=== PATIENT | male | born 1995 | race African-American/Black ===

== ENCOUNTER 2021-10-31 17:24 | Emergency (ER) | payer MEDICAID, SELFPAY ==
[2021-10-31 17:56] VITALS: BP 151/80; PULSE 88; RESP 17; TEMP 36.5; O2SAT 97; BMI 19.5
--- NOTE | 2021-10-31 19:27 | ED_ITS ---
HPI - Nausea/Vomiting/Diarrhea General Chief complaint: Nausea/Vomiting/Diarrhea Stated complaint: weakness/vomiting/abd pain Time Seen by Provider: 10/31/21 19:22 Source: patient Mode of arrival: ambulatory Limitations: no limitations History of Present Illness HPI Narrative: 26-year-old male states he recently drove here from [place] went to a restaurant with his girlfriend who drove up from [place] with him she lives here he is coming here to visit he states after he ate the food he has had nausea vomiting and diarrhea. Patient starting feel weak he denies chest pain cough or shortness of breath. Patient states that her been hospitalized for nausea vomiting in the past. MD elicited complaint: nausea, vomiting and diarrhea Related Data Previous Rx's Medication Instructions Recorded famotidine 20 mg tablet (Pepcid) 20 mg PO BID PRN #60 tab 10/31/21 ondansetron 4 mg disintegrating 4 mg PO Q6H #14 tab 10/31/21 tablet Allergies Allergy/AdvReac Type Severity Reaction Status Date / Time No Known Allergies Allergy Verified 10/31/21 19:26 Review of Systems Review of Systems: Review of systems: General: Patient denies any fever chills recent illness or falls Musculoskeletal: Denies back pain or body aches or other injuries HEENT: denies headache, runny nose, ear pain Respiratory: denies shortness of breath, cough Cardiovascular: no chest pain or palpitations : denies dysuria, frequency Abdomen: nausea vomiting denies abdominal pain Extremities: no swelling, no pain Skin: no diaphoresis Yes all other systems are reviewed and are negative PMFSH Social History Social History Alcohol intake: unknown Patient Tobacco Use Status: Tobacco use Unknown Use of substances other than those prescribed or required for medical reasons: Unknown Advance Directives: No Physical Exam Vital Signs: Vital Signs: Last Vital Signs Temp 97.7 F 10/31/21 17:56 Pulse 88 10/31/21 17:56 Resp 17 10/31/21 17:56 BP 151/80 H 10/31/21 17:56 Pulse Ox 97 10/31/21 17:56 BMI result Body Mass Index 19.5 General: Well-appearing well-nourished in no signs of distress HEENT: Normocephalic atraumatic Neck: No signs of JVD, no masses no tenderness or lymphadenopathy Cardiovascular: Regular rate and rhythm Respiratory: Clear to auscultation bilaterally Abdomen: Soft nontender no masses rectal exam performed guiac negative 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 Extremities: Normal pedal pulses no signs of edema Skin: Dry warm no rashes Back: No tenderness full ROM MDM - Nausea/Vomiting/Diarrhea MDM Narrative Medical decision making narrative: Likely viral or food induced enteritis I will give the patient Zofran fluids Pepcid I will check labs including LFTs and lipase. 2009 Labs are all normal. Patient sleeping in the room I will discharge home. Differential Diagnosis Differential diagnosis: Likely traveler's diarrhea, food poisoning and gastroenteritis Lab Data Result diagrams: 10/31/21 19:38 10/31/21 19:38 Labs: Lab Results 10/31/21 10/31/21 10/31/21 Range/Units 19:38 19:38 19:38 WBC 11.1 H (4.8-10.8) X10*3/uL RBC 5.98 H (4.60-5.80) X10*6/uL Hgb 18.5 H (14.0-18.0) g/dl Hct 54.5 H (42.0-52.0) % MCV 91.1 (80.0-98.0) fL MCH 30.9 (27.0-33.0) pg MCHC 33.9 (31.0-36.0) g/dl RDW 12.8 (11.0-16.0) % Plt Count 294 (160-400) X10*3/uL MPV 10.2 (9.4-12.4) fL Immature Gran % (Auto) 0.4 (0.0-0.4) % Neut % (Auto) 85.5 H (45-73) % Lymph % (Auto) 5.4 L (20-40) % [place] % (Auto) 8.1 (2-11) % Eos % (Auto) 0.3 (0-4) % Baso % (Auto) 0.3 (0-2) % Lymph # (Auto) 0.6 L (1.2-4.9) X10*3/uL [place] # (Auto) 0.9 (0.1-1.2) X10*3/uL Eos # (Auto) 0.0 (0.0-0.4) X10*3/uL Baso # (Auto) 0.0 (0.0-0.2) X10*3/uL Abs Immat Gran (auto) 0.04 H (0.00-0.03) X10*3/uL Absolute Neuts (auto) 9.5 H (2.0-8.3) x10*3/uL Absolute Nucleated RBC 0.000 (0.0-0.012) X10*3/uL Nucleated RBC % (auto) 0.0 (0.0-0.2) /100WBC Sodium 137 (135-145) mmol/L Potassium 4.8 (3.3-5.1) mmol/L Chloride 102 (96-108) mmol/L Carbon Dioxide 23 (22-29) mmol/L Anion Gap 17 (12-20) BUN 15 (9-16) mg/dL Creatinine 0.97 (0.5-1.4) mg/dL Estim Creat Clear Calc 108.7 Estimated GFR > 60 Random Glucose 101 (60-115) mg/dL Calcium 10.0 (8.4-10.2) mg/dL Total Bilirubin 1.2 H (0.0-1.0) mg/dL Direct Bilirubin 0.3 (0.0-0.5) mg/dL AST 31 (5-37) U/L ALT 28 (0-40) U/L Alkaline Phosphatase 149 H (39-117) U/L Total Protein 8.5 H (6.5-8.0) g/dL Albumin 5.0 (3.5-5.0) g/dL Lipase 6 L (8-78) U/L COVID-19 ([facility]) Negative (Negative) COVID-19 Clin Com See Note Discharge Plan Discharge Clinical Impression: Dehydration, Vomiting, Diarrhea Patient Disposition: Home, Self-Care Instructions: Dehydration (ED), Gastroenteritis (ED), Acute Diarrhea (ED) Additional Instructions: Please take zofran as needed for vomiting. Your labs otherwise look normal. Prescriptions: New famotidine [Pepcid] 20 mg tablet 20 mg PO BID PRN (Reason: dyspepsia) Qty: 60 0RF ondansetron 4 mg tablet,disintegrating 4 mg PO Q6H Qty: 14 0RF
[2021-10-31] MEDS: Famotidine/PF 20 MG/2 ML VIAL IVPUSH (19:35)
[2021-10-31] MEDS: 0.9 % Sodium Chloride 1,000 ML 999 ML IV (19:35)
[2021-10-31] MEDS: ondansetron HCL 4 MG/2 ML VIAL IVPUSH (19:35)
[2021-10-31 19:42] LABS: MANUAL DIFF FLAG NO
[2021-10-31 19:43] LABS: Basophils Percent Auto 0.3 % (0-2); Eosinophils Percent Auto 0.3 % (0-4); Hematocrit 54.5 % (42.0-52.0); Hemoglobin 18.5 g/dl (14.0-18.0); Imm Gran Abs Auto 0.04 X10*3/uL (0.00-0.03); Imm Gran Pct Auto 0.4 % (0.0-0.4); Lymphocytes Absolute Auto 0.6 X10*3/uL (1.2-4.9); Lymphocytes Percent Auto 5.4 % (20-40); Mean Corpuscular HGB Conc 33.9 g/dl (31.0-36.0); Mean Corpuscular Hemoglobin 30.9 pg (27.0-33.0); Mean Corpuscular Volume 91.1 fL (80.0-98.0); Mean Platelet Volume 10.2 fL (9.4-12.4); Monocytes Absolute Auto 0.9 X10*3/uL (0.1-1.2); Monocytes Percent Auto 8.1 % (2-11); Neutrophils Absolute Auto 9.5 x10*3/uL (2.0-8.3); Neutrophils Percent Auto 85.5 % (45-73); Platelet Count 294 X10*3/uL (160-400); Red Blood Count 5.98 X10*6/uL (4.60-5.80); Red Cell Distribution Width 12.8 % (11.0-16.0); White Blood Count 11.1 X10*3/uL (4.8-10.8)
[2021-10-31 19:59] LABS: Alanine Aminotransferase 28 U/L (0-40); Alkaline Phosphatase 149 U/L (39-117); Anion Gap 17 (12-20); Aspartate Amino Transferase 31 U/L (5-37); Bilirubin Direct 0.3 mg/dL (0.0-0.5); Bilirubin Total 1.2 mg/dL (0.0-1.0); Blood Urea Nitrogen 15 mg/dL (9-16); COVID-19 Test Negative (Negative); Carbon Dioxide 23 mmol/L (22-29); Chloride 102 mmol/L (96-108); Creatinine Clr Calc Pharmacy 108.7; Estimated Glomerular Filt Rate > 60; Glucose Random 101 mg/dL (60-115); Lipase 6 U/L (8-78); Potassium 4.8 mmol/L (3.3-5.1); Sodium 137 mmol/L (135-145); Total Protein 8.5 g/dL (6.5-8.0)
== END 2021-10-31 21:30 | disposition home or self-care (01) ==
PROVIDERS: Emergency Provider Student in an Organized Health Care Education/Training Program
DX: E86.0 Dehydration (principal); R11.2 Nausea with vomiting, unspecified; R19.7 Diarrhea, unspecified; Z20.822 Contact with and (suspected) exposure to COVID-19; Z79.899 Other long term (current) drug therapy
CPT/HCPCS: 80048; 80076; 83690; 85025; 87635; 96361; 96374; 96375; 99284; J2405

== ENCOUNTER 2022-03-13 22:13 | Emergency (ER) | payer MEDICAID, SELFPAY ==
--- NOTE | ~2022-03-13 | XR_ITS ---
EXAMINATION: XR CHEST CLINICAL INFORMATION: Pain, syncope COMPARISON: None TECHNIQUE: 2 views of the chest were obtained. FINDINGS: The lungs are clear with no focal consolidation. No evidence of pneumothorax, pulmonary edema, or pleural effusions. The cardiomediastinal silhouette is unremarkable. No acute osseous findings. XR/XR chest 2V IMPRESSION: No acute cardiopulmonary findings.
--- NOTE | ~2022-03-13 | XR_ITS ---
EXAMINATION: XR BILATERAL HIPS WITH AP PELVIS CLINICAL INFORMATION: Syncope, pain COMPARISON: None TECHNIQUE: AP view of the pelvis and single views of each hip were obtained. FINDINGS: Alignment across the hips is anatomic, and joint spaces appear maintained. No acute fracture is seen. Sacroiliac joints and pubic symphysis are intact. XR/XR hips MILANA min 3V IMPRESSION: No acute findings identified.
[2022-03-13 22:15] VITALS: BP 130/94; PULSE 85; RESP 18; TEMP 37.1; O2SAT 95; BMI 29.1
--- NOTE | 2022-03-13 22:19 | ECG_ITS ---
Test Reason : SYNCOPE Blood Pressure : / mmHG Vent. Rate : 084 BPM Atrial Rate : 084 BPM P-R Int : 196 ms QRS Dur : 094 ms QT Int : 322 ms P-R-T Axes : 052 048 049 degrees QTc Int : 380 ms Normal sinus rhythm Normal ECG No previous ECGs available Referred By: Generic ED Physician Electronically Signed By:Deon Aly
[2022-03-13 22:35] LABS: MANUAL DIFF FLAG NO
[2022-03-13 22:37] LABS: Basophils Absolute Auto 0.1 X10*3/uL (0.0-0.2); Basophils Percent Auto 0.7 % (0-2); Eosinophils Absolute Auto 0.2 X10*3/uL (0.0-0.4); Eosinophils Percent Auto 1.8 % (0-4); Hematocrit 49.2 % (42.0-52.0); Hemoglobin 16.8 g/dl (14.0-18.0); Imm Gran Abs Auto 0.05 X10*3/uL (0.00-0.03); Imm Gran Pct Auto 0.4 % (0.0-0.4); Lymphocytes Absolute Auto 2.4 X10*3/uL (1.2-4.9); Lymphocytes Percent Auto 18.4 % (20-40); Mean Corpuscular HGB Conc 34.1 g/dl (31.0-36.0); Mean Corpuscular Hemoglobin 30.6 pg (27.0-33.0); Mean Corpuscular Volume 89.6 fL (80.0-98.0); Mean Platelet Volume 9.8 fL (9.4-12.4); Monocytes Percent Auto 7.3 % (2-11); Neutrophils Absolute Auto 9.2 x10*3/uL (2.0-8.3); Neutrophils Percent Auto 71.4 % (45-73); Platelet Count 313 X10*3/uL (160-400); Red Blood Count 5.49 X10*6/uL (4.60-5.80); Red Cell Distribution Width 12.4 % (11.0-16.0); White Blood Count 12.9 X10*3/uL (4.8-10.8)
[2022-03-13 22:53] LABS: Ethanol < 10 mg/dL
[2022-03-13 22:58] LABS: Alanine Aminotransferase 20 U/L (0-40); Alkaline Phosphatase 135 U/L (39-117); Aspartate Amino Transferase 24 U/L (5-37); Bilirubin Direct 0.2 mg/dL (0.0-0.5); Bilirubin Total 0.5 mg/dL (0.0-1.0); Total Protein 8.2 g/dL (6.5-8.0)
[2022-03-13 22:59] LABS: Troponin-I High Sensitivity < 3.5 ng/L (<3.5-35.0)
[2022-03-13 23:09] LABS: Anion Gap 16 (12-20); Blood Urea Nitrogen 11 mg/dL (9-16); Calcium 9.6 mg/dL (8.4-10.2); Carbon Dioxide 22 mmol/L (22-29); Chloride 108 mmol/L (96-108); Creatinine Clr Calc Pharmacy 119.4; Estimated Glomerular Filt Rate > 60; Glucose Random 93 mg/dL (60-115); Potassium 4.9 mmol/L (3.3-5.1); Sodium 141 mmol/L (135-145)
== END 2022-03-14 01:25 | disposition left against medical advice (07) ==
PROVIDERS: Emergency Provider Emergency Medicine
DX: T67.1XXA Heat syncope, initial encounter (principal); S79.912A Unspecified injury of left hip, initial encounter; S79.911A Unspecified injury of right hip, initial encounter; X58.XXXA Exposure to other specified factors, initial encounter; Y93.9 Activity, unspecified; Y92.830 Public park as the place of occurrence of the external cause; Y99.9 Unspecified external cause status
CPT/HCPCS: 36415; 71046; 73522; 80053; 80076; 82077; 82248; 84484; 85025; 93005; 99283